=== PATIENT | female | born 1970 | race Caucasian/White ===

== ENCOUNTER 2021-03-16 17:49 | Emergency (ER) | payer BC ==
[~2021-03-16] VITALS: Ht 162.6 cm; Wt 127.0 kg
[2021-03-16 17:56] VITALS: BP 139/78
--- NOTE | 2021-03-16 18:28 | PHYS DOC ---
Past Medical History Past Surgical History: Gastric Bypass Smoking Status: Never Smoker Alcohol Use: None General Adult EDM: Chief Complaint: SHOULDER INJURY HPI: HPI: Patient is a 50-year-old female that presents today with right-sided neck shoulder pain. Patient states she woke up Friday morning with the pain, was seen by Her chiropractor on Friday was given some treatments some creams then, states the pain did not get any better so she repeated her treatment with her chiropractor on Friday at which time she got some e-stim therapy as well, she said the pain did not get any better over the holiday she was seen by her primary care office today and was given a prescription for Flexeril and Lidoderm patches. Patient presents to our emergency department because the pain has not gotten any better and the Flexeril just knocked her out. Patient states her primary care physician is at [facility] [place] she states she went to the [facility] today and they had a 5-hour wait and she came to us because her weight was shorter. Patient currently has a Lidoderm patch on that area. Review of Systems: Review of Systems: Constitutional: Denies fever or chills. [] Eyes: Denies change in visual acuity. [] HENT: Denies nasal congestion or sore throat. [] Respiratory: Denies cough or shortness of breath. [] Cardiovascular: Denies chest pain or edema. [] GI: Denies abdominal pain, nausea, vomiting, bloody stools or diarrhea. [] : Denies dysuria. [] Musculoskeletal: Right-sided neck shoulder pain Integument: Denies rash. [] Neurologic: Denies headache, focal weakness or sensory changes. [] Endocrine: Denies polyuria or polydipsia. [] Lymphatic: Denies swollen glands. [] Psychiatric: Denies depression or anxiety. [] Heart Score: C/O Chest Pain: N/A Risk Factors: Risk Factors: DM, Current or recent (<one month) smoker, HTN, HLP, family his tory of CAD, obesity. Risk Scores: Score 0 - 3: 2.5% MACE over next 6 weeks - Discharge Home Score 4 - 6: 20.3% MACE over next 6 weeks - Admit for Clinical Observation Score 7 - 10: 72.7% MACE over next 6 weeks - Early Invasive Strategies Allergies: Allergies: Allergies Coded Allergies Type Severity Reaction Last Updated Verified No Known Drug Allergies 03/16/21 No Physical Exam: PE: Constitutional: Well developed, well nourished, no acute distress, non-toxic appearance. [] HENT: Normocephalic, atraumatic, bilateral external ears normal, oropharynx moist, no oral exudates, nose normal. [] Eyes: PERRLA, EOMI, conjunctiva normal, no discharge. [] Neck: Patient has limited range of motion to the right side of her neck she is holding her neck very steady she does have a lot of pain and tenderness in the left neck left scapular area, multiple trigger points noted. Cardiovascular:Heart rate regular rhythm, no murmur [] Lungs & Thorax: Bilateral breath sounds clear to auscultation [] Abdomen: Bowel sounds normal, soft, no tenderness, no masses, no pulsatile masses. [] Skin: Warm, dry, no erythema, no rash. [] Back: Patient is having tenderness in the scapular area of the right back Extremities: Patient cannot move right arm with full range of motion due to right neck pain right scapular pain radial pulse right arm is 2+ neurovascular is intact distal to the pain Neurologic: Alert and oriented X 3, normal motor function, normal sensory function, no focal deficits noted. [] Psychologic: Affect normal, judgement normal, mood normal. [] Current Patient Data: Vital Signs: Vital Signs Date Time Temp Pulse Resp B/P (MAP) Pulse Ox O2 Delivery O2 Flow Rate FiO2 03/16/21 17:56 98.9 92 14 139/78 (98) 99 98.9 EKG: EKG: [] Radiology/Procedures: Radiology/Procedures: [] Course & Med Decision Making: Course & Med Decision Making Pertinent Labs and Imaging studies reviewed. (See chart for details) Spoke to patient at length about the treatment for a condition called torticollis. Reassured patient that the treatment she is currently provided is appropriate for the condition just must give it time to work 4 hours as not a lot of time for treatments to work. Patient states she is unable to take oral NSAIDs due to her history of gastric bypass but is able to take a topical NSAID. Patient instructed that since the Flexeril knocked her out she may just try a half a tablet of the Flexeril to help with pain, and will order some opioid pain medications to be used on a short-term basis. Patient is agreeable to the plan and verbalizes understanding of the instructions Dino Disclaimer: Dino Disclaimer: This electronic medical record was generated, in whole or in part, using a voice recognition dictation system. Departure Departure Impression: Primary Impression: Torticollis, acute Disposition: HOME / SELF CARE / HOMELESS Condition: STABLE Patient Instructions: Torticollis, Acute Additional Instructions: Flexeril half a tablet 3 times a day as needed for muscle spasms Diclofenac topical apply to the affected area three times daily for the next 5 day Hydrocodone one-two tablets every 6 hours as needed for pain. Follow up on Friday with PCP at [facility]. Scripts Hydrocodone/Acetaminophen (Hydrocodone-Acetamin 5-325 mg) 1 Each Tablet 2 EACH PO PRN Q6HRS PRN for MUSCLE PAIN, #20 TAB Prov: SHAWNEE HANNA APRN 03/16/21 SHAWNEE HANNA APRN Mar 16, 2021 18:28
[2021-03-16] MEDS ORDERED: HYDR-2759 PO (18:50)
== END 2021-03-16 18:55 | disposition home or self-care (01) ==
LOC: ER 17:49
DX: M43.6 Torticollis (principal); M25.511 Pain in right shoulder; Z95.1 Presence of aortocoronary bypass graft
CPT/HCPCS: 99282